=== PATIENT | male | born 1970 | race Caucasian/White ===

== ENCOUNTER 2018-04-16 21:12 | Emergency (ER) | payer OTHER ==
[~2018-04-16] VITALS: Ht 175.3 cm; Wt 70.3 kg
--- NOTE | 2018-04-16 21:35 | NUR ---
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 PT AAOX4. ABLE TO SPEAK IN COMPLETE SENTENCES. ABLE TO MAKE NEEDS KNOWN. PT STATES HE FEELS LIKE HE "CAN'T CATCH HIS BREATH." PT PLACED ON 2L 02 VIA NC. SA02 100% ON MONITOR. PT PLACED ON MONITOR.
[2018-04-16] MEDS ORDERED: ASPIRIN 325 MG TABLET ONE (21:36)
[2018-04-16] MEDS ORDERED: NITROGLYCERIN 0.4 MG/TAB BOTTLE SL ONE ×2 (21:36→21:45)
[2018-04-16 21:39] LABS: BASOPHILS % (AUTO) 0.8 % (0.0-2.0); EOSINOPHILS # (AUTO) 0.1 K/uL (0.0-0.7); EOSINOPHILS % (AUTO) 1.9 % (0.0-7.0); HEMATOCRIT 40.4 % (36.7-47.1); HEMOGLOBIN 14.1 g/dL (12.5-16.3); LYMPHOCYTES # (AUTO) 2.4 K/uL (20.0-40.0); LYMPHOCYTES % (AUTO) 43.8 % (20.5-51.5); MEAN CORPUSCULAR HEMOGLOBIN 31.6 uug (23.8-33.4); MEAN CORPUSCULAR HGB CONC 35 g/dL (32.5-36.3); MEAN CORPUSCULAR VOLUME 90.4 fL (73.0-96.2); MONOCYTES # (AUTO) 0.5 K/uL (2.0-10.0); MONOCYTES % (AUTO) 9.3 % (0.0-11.0); NEUTROPHILS # (AUTO) 2.5 K/uL (1.8-8.9); NEUTROPHILS % (AUTO) 44.2 % (38.5-71.5); PLATELET COUNT (AUTO) 165 K/uL (152-348); RED BLOOD CELL COUNT(AUTO) 4.47 MIL/uL (4.06-5.63); WHITE BLOOD COUNT (AUTO) 5.6 K/uL (3.6-10.2)
[2018-04-16] MEDS ORDERED: ALBUTEROL SULFATE 2.5 MG/3 ML NEBU ONE (21:42)
[2018-04-16] MEDS ORDERED: ALBUTEROL SULFATE 2.5 MG/3 ML NEBU NEB ONE (21:45)
[2018-04-16] MEDS ORDERED: ASPIRIN 325 MG TABLET PO ONE (21:45)
[2018-04-16 21:49] LABS: CREATININE 1.3 mg/dL (0.6-1.3); POTASSIUM 3.5 mmol/L (3.5-5.1)
[2018-04-16] MEDS ORDERED: LORAZEPAM 2 MG/1 ML VIAL IV ONE (22:00)
[2018-04-16 22:01] LABS: BILIRUBIN,DIRECT 0.2 mg/dL (0.0-0.2); BILIRUBIN,TOTAL 0.8 mg/dL (0.2-1.0); TOTAL PROTEIN, SERUM 7.5 g/dL (6.4-8.2)
[2018-04-16] MEDS ORDERED: LORAZEPAM 2 MG/1 ML VIAL ONE (22:17)
--- NOTE | 2018-04-16 22:30 | NUR ---
PT RESTING IN BED COMFORTABLY. FRIEND AT BEDSIDE. NO ACUTE DISTRESS NOTED. VSS. AWAITING TEST RESULTS.
--- NOTE | 2018-04-17 00:30 | NUR ---
REPEAT EKG DONE. REPEAT TROPONIN BLOOD DRAW DONE. AWAITING RESULTS. NO ACUTE DISTRESS NOTED. VSS.
--- NOTE | 2018-04-17 01:04 | NUR ---
IV removed. Catheter intact and site benign. Pressure and 4x4 gauze applied to site. No bleeding noted.
--- NOTE | 2018-04-17 01:06 | NUR ---
Patient discharged to home in stable conditon. Written and verbal after care instructions given. Patient verbalizes understanding of instructions. patient ambulated out of ER in steady gait accompaneid by friend. All belongings with pt. VSS. No acute distress noted.
[2018-04-17 02:40] VITALS: BP 131/59
== END 2018-04-17 01:06 | disposition home or self-care (01) ==
LOC: ER 21:14
DX: R07.9 Chest pain, unspecified (principal); R06.02 Shortness of breath
CPT/HCPCS: 36415 ×2; 71045; 80048; 80076; 83880; 84484 ×2; 85025; 85379; 85730; 93005 ×2; 94640; 99285; A4663; J2060; 70030-TC